=== PATIENT | female | born 1980 | race African-American/Black ===

== ENCOUNTER 2022-01-06 09:54 | Day surgery (SDC) | payer BC ==
[2022-01-01 16:18] LABS: Absolute Lymphocytes (CBC) 2.5 K/uL (0.7-4.9); Hematocrit 39.4 % (36.0-45.0); Lymphocytes % 25.7 % (15.3-44.8); MCV 92.1 fL (80-100); RBC Red Blood Cell Count 4.28 M/uL (3.86-4.86)
[2022-01-01 16:30] LABS: ALT/SGPT 27 U/L (12-78); AST/SGOT 10 U/L (15-37); Albumin 3.7 g/dL (3.4-5.0); Alkaline Phosphatase 94 U/L (45-117); Amylase 67 U/L (25-115); BUN Blood Urea Nitrogen 8 mg/dL (7-18); Bicarbonate 29 mmol/L (21-32); Bilirubin Total 0.3 mg/dL (0.2-1.0); Glomerular Filtration Rate 78 ml/min (=/>90); Glucose Level 91 mg/dL (74-106); Lipase 193 U/L (73-393); Potassium 3.9 mmol/L (3.5-5.1); Protein, Total 8.2 g/dL (6.4-8.2); Sodium Level 137 mmol/L (136-145)
--- NOTE | 2022-01-01 16:30 | RAD REPORT ---
EXAM DESCRIPTION: RAD - Chest Pa And Lat (2 Views) - 01/01/2022 4:03 pm CLINICAL HISTORY: Pre op pending cholecystectomy COMPARISON: No comparisons FINDINGS: Lines: None. Lungs: No evidence of edema or pneumonia. Pleural: No significant pleural effusions or pneumothorax. Cardiac: The heart size is within normal limits. Bones: No acute fractures. Other: IMPRESSION: No acute cardiopulmonary disease.
[2022-01-01 16:31] LABS: Bilirubin Direct < 0.1 mg/dL (0-0.2)
[2022-01-01 16:49] LABS: SARS-CoV-2 Antigen Rapid Res Negative (Negative)
--- NOTE | 2022-01-02 08:48 | EKG ---
Test Date: 2022-01-01 Test Time: 15:41:15 Wax Blender: MARIA D MEASUREMENT RESULTS: Intervals: Rate: 54 OR: 174 QRSD: 94 QT: 392 QTc: 371 Telferner: P: 50 OR: 174 QRS: 21 T: 18 INTERPRETIVE STATEMENTS: Sinus bradycardia with sinus arrhythmia Nonspecific T wave abnormality Abnormal ECG No previous ECG available for comparison Electronically Signed On 01-02-22 08:46:58 CDT by Raul Marie
[2022-01-06] MEDS ORDERED: CEFOXITIN SODIUM 1 GM/VIAL ONE (10:18)
[2022-01-06] MEDS ORDERED: Ringers Lactate 1,000 ML IV ONE (10:18)
[2022-01-06] MEDS ORDERED: MIDAZOLAM HCL 2 MG/2 ML INJ ONE (10:58)
[2022-01-06] MEDS ORDERED: propofoL 200 MG/20 ML VIAL IV ONE (11:01)
[2022-01-06] MEDS ORDERED: FENTANYL CITR 100 MCG/2 ML ONE (11:01)
[2022-01-06] MEDS ORDERED: LIDOCAINE 2% MPF 5 ML VIAL ONE (11:01)
[2022-01-06] MEDS ORDERED: ONDANSETRON 4 MG/2 ML VIAL ONE (11:02)
[2022-01-06] MEDS ORDERED: ROCURONIUM 50 MG/5 ML VIAL IV ONE (11:02)
[2022-01-06] MEDS ORDERED: dexAMETHasone 4 MG/ML VIAL ONE (11:02)
--- NOTE | 2022-01-06 11:39 | P.BOP ---
Preoperative diagnosis: symptomatic cholelithiasis, RUQ abd pain Postoperative diagnosis: same Primary procedure: Laparoscopic cholecystectomy Dish Maker: Ashley Chaudhari (Jules) Estimated blood loss: <10cc Specimen: gb Findings: as above Anesthesia: General Complications: None Transferred to: Recovery Room Condition: Good
[2022-01-06] MEDS ORDERED: Mastisol Adhesive Liq ONE (11:47)
[2022-01-06] MEDS ORDERED: NEOSTIGMINE 1 MG/ML -10 ML VIAL ONE (11:53)
[2022-01-06] MEDS ORDERED: GLYCOPYRROLATE 0.2 MG/ML SYR ONE (11:53)
[2022-01-06] MEDS ORDERED: KETOROLAC 30 MG/ML INJ ONE (11:57)
[2022-01-06] MEDS: HYDROMORPHONE HCL 1 MG/ML INJ ONE ×2 (12:14→12:23)
--- NOTE | 2022-01-06 14:08 | DS ---
Diagnoses: Symptomatic cholelithiasis, right upper quadrant abdominal pain. Procedure: Laparoscopic cholecystectomy. Disposition: Home. Activity: As tolerated. No heavy lifting. Plan: Follow up in my office in 1 week. Call for appointment at [phone]. Keep area dry for 48 elaina rs, then may shower. Keep Steri-Strips intact. PARDEEP/ARIANNE Voice ID: [id number] Report ID: [id number]
--- NOTE | 2022-01-06 14:11 | OP ---
Date of Procedure: 01/06/2022 Surgeon: Alejandro Layne MD Loan Review Analyst: Ashley Paulson. Preoperative Diagnoses: Symptomatic cholelithiasis, right upper quadrant abdominal pain, history of abdominoplasty, obesity. Postoperative Diagnoses: Symptomatic cholelithiasis, right upper quadrant abdominal pain, history of abdominoplasty, obesity. Procedure: Laparoscopic cholecystectomy. Specimen: Gallbladder. Anesthesia: General plus local. Estimated Blood Loss: Less than 10 mL. Indication: This is the case of a female, who comes to us with above diagnoses. Fully explained the benefits, alternatives, and risks of laparoscopic possible open cholecystectomy, which include, but not limited to infection, bleeding, damage to adjacent structures, anesthesia complication, choledoch olithiasis, bile leak, pancreatitis, [place], and even . She also understands this may not relieve a ny symptoms. She might need more than one surgical intervention. She understood, signed a consent. We also had this patient with abdominoplasty. There is no bellybutton available. There is a small indentation that would bellybutton may be in the future. No scars in that area. We are going to hav e to make an incision in that area. She understands the scaring on that region. She understood. Procedure In Detail: The patient was brought to the operating room, placed in supine position. Anes thesia was done without complication. Abdominal area was prepped and draped in the usual sterile fas hion. Marcaine 0.5% was injected for local anesthetic followed by sharp incision of the skin in a cu rvilinear fashion in the area where the umbilical supposed to be. The incision was carried down to f ascia, which was opened under direct vision. Peritoneum was encountered, opened under direct vision. Vicryl #1 placed inside the fascia. Abhi trocar was carefully introduced. Pneumoperitoneum was obtained. At that moment, I proceeded to place 3 more trocars, 5 mm each one of them, 1 in epigastri c to the right upper quadrant under direct visualization. This allowed me to put a grasper in the fu ndus of the gallbladder, another grasper in the infundibulum, retracting the gallbladder in the infer olateral fashion, exposing the triangle of Calot, and obtaining critical view. Cystic duct and cysti c artery were clearly isolated, freed circumferentially and a connection between those and the gallbl adder was clearly identified. I proceeded to ligate those by using at least 3 clips proximal, 1 clip distal, ligation in middle. Same was done with the cystic artery. No bile leak. No bleeding. The gallbladder was removed from liver using Bovie cauterizer and removed from abdominal cavity using En doCatch through the umbilical incision. The area was inspected once again. No bile leak. No bleedi ng. At that moment, I proceeded to remove the trocars under direct vision. Deflated the pneumoperit oneum. Closed the fascia with #1 Vicryl. Irrigated subcutaneous tissue, closed that with 3-0 chromi c and skin in a subcuticular fashion with 3-0 chromic and Steri-Strips on top. Sponge count, instrum ent counts correct. The patient tolerated the procedure well. The patient was sent to recovery in s table condition. LINO Voice ID: [id number] Report ID: [id number]
[2022-01-06 16:58] VITALS: BP 126/67; TEMP 98.2; O2SAT 97
== END 2022-01-06 15:55 | disposition home or self-care (01) ==
LOC: OR 09:54
PROVIDERS: ATTEND Surgery
PROC: 0FT44ZZ Resection of Gallbladder, Percutaneous Endoscopic Approach (ICD-10-PCS; principal; 2022-01-06 12:15)
DX: K80.10 Calculus of gallbladder with chronic cholecystitis without obstruction (principal); R10.11 Right upper quadrant pain; E66.9 Obesity, unspecified; Z98.890 Other specified postprocedural states; Z20.822 Contact with and (suspected) exposure to COVID-19
CPT/HCPCS: 93005; 85025; 80048; 36415; 82150; 81025; 80076; 88304; 83690; 71046; 87811; 47562; J2704; J1100; J2710; J2250; J3010; J1170; J7120; J0694; J2405